=== PATIENT | male | born 1960 | race Caucasian/White ===

== ENCOUNTER → 2023-01-19 | Day surgery (SDC) | payer OTHER ==
[~2023-01-19] MED LIST: ATENOLOL50 MG PO; FENTANYL CITRATE/PF 100MCG/2 ML INJ ONE; FLOMAX0.4 MG PO; LACTATED RINGER'S 1,000 ML ONE; METFORMIN HCL500 MG PO; MIDAZOLAM HCL 2 MG/2 ML VIAL ONE; OR PHACO EYE KIT ONE; PREOP PHACO EYE KIT ONE; TRIAMTERENE-HCTZ1 EA PO
[2023-01-19 11:17] VITALS: BP 115/78
== END | disposition home or self-care (01) ==
LOC: OR 07:20
PROVIDERS: ATTEND Ophthalmology
DX: H25.12 Age-related nuclear cataract, left eye (principal); Z79.84 Long term (current) use of oral hypoglycemic drugs; Z79.899 Other long term (current) drug therapy
CPT/HCPCS: 36415; 66984; 82948; J2250; J3010; J7121

== ENCOUNTER → 2023-02-02 | Day surgery (SDC) | payer OTHER ==
[2023-02-02 11:40] VITALS: BP 128/75
== END | disposition home or self-care (01) ==
LOC: OR 08:08
PROVIDERS: ATTEND Ophthalmology
DX: H25.11 Age-related nuclear cataract, right eye (principal); I10 Essential (primary) hypertension; E11.9 Type 2 diabetes mellitus without complications; Z79.84 Long term (current) use of oral hypoglycemic drugs; Z79.899 Other long term (current) drug therapy
CPT/HCPCS: 36415; 66984; 82948; J2250; J3010; J7121; V2632